=== PATIENT | female | born 1990 | race Caucasian/White ===

== ENCOUNTER 2016-09-13 09:59 | Day surgery (SDC) | payer BC ==
[~2016-09-13] VITALS: Ht 167.6 cm; Wt 71.8 kg
[~2016-09-13 09:59] MED LIST: DEXAMETHASONE SOD PHOS 4 MG/ML VIAL IVP ONE; FentaNYL CITRATE-PF 100 MCG/2 ML VIAL IVP ONE; KETOROLAC TROMETHAMINE 60 MG/2 ML VIAL IM ONE; METOCLOPRAMIDE HCL 5 MG/ML 2 ML VIAL IVP ONE; MIDAZOLAM HCL 2 MG/2 ML VIAL IVP ONE; ONDANSETRON HCL 4 MG/2 ML VIAL IVP ONE; PROPOFOL 1% 20 ML VIAL IVP ONE; RINGERS SOLUTION,LACTATED 1,000 ML IV ONE
[2016-09-13] MEDS ORDERED: TOPI50TA90 PO (10:35)
[2016-09-13] MEDS: BACITRACIN 50,000 UNITS/VIAL ONE ×2 (11:48→12:35)
[2016-09-13] MEDS ORDERED: SODIUM CHLORIDE 0.9% 10 ML ONE (12:01)
[2016-09-13] MEDS ORDERED: MEPERIDINE-PF 25 MG/ML SYRINGE IVP PRN (12:30)
[2016-09-13] MEDS: BUPIVACAINE LIPOSOME/PF 1.3%-13.3MG/ML SUSPENSION 10 ML VIAL INJ ONE ×3 (12:35→13:30)
[2016-09-13] MEDS ORDERED: TOPI100 PO (12:48)
[2016-09-13] MEDS ORDERED: RINGERS SOLUTION,LACTATED 1,000 ML IV ONE (13:37)
[2016-09-13] MEDS ORDERED: HYDROmorphone 2 MG/ML SYRINGE ONE ×3 (13:45→14:59)
[2016-09-13] MEDS: FentaNYL CITRATE-PF 100 MCG/2 ML VIAL IVP PRN ×3 (14:17→14:52)
[2016-09-13] MEDS ORDERED: FentaNYL CITRATE-PF 100 MCG/2 ML VIAL ONE ×2 (14:18→14:51)
[2016-09-13] MEDS: HYDROmorphone 2 MG/ML SYRINGE IVP PRN ×3 (14:31→15:09)
[2016-09-13] MEDS ORDERED: OxyCODONE HCL/ACETAMINOPHEN 5-325 MG TABLET ONE (16:09)
[2016-09-13] MEDS ORDERED: OxyCODONE HCL/ACETAMINOPHEN 5-325 MG TABLET PO ONE (16:15)
[2016-09-13] MEDS ORDERED: OXYGEN THERAPY IH SCH (20:00)
== END 2016-09-13 16:35 | disposition home or self-care (01) ==
LOC: SURGERY 09:59
PROVIDERS: ATTEND Surgery Plastic and Reconstructive Surgery
DX: S51.801A Unspecified open wound of right forearm, initial encounter (principal); Z98.890 Other specified postprocedural states; X58.XXXA Exposure to other specified factors, initial encounter; Y93.9 Activity, unspecified; Y92.9 Unspecified place or not applicable
CPT/HCPCS: 25260; 26350 ×2; 64708; 84703; J0690; J1100; J1170; J1885; J2405; J2704; J2765; J3010; J3490; J7120; 88300; 88304; J2250